=== PATIENT | female | born 1985 | race American Indian/Alaskan Native ===

== ENCOUNTER 2018-10-13 21:15 | Emergency (ER) | payer OTHER ==
[2018-10-13 21:29] VITALS: BP 119/68
--- NOTE | 2018-10-13 22:08 | XRay Report ---
RIGHT KNEE 2 VIEWS INDICATION / CLINICAL INFORMATION: Right knee pain and swelling COMPARISON: None available. FINDINGS: BONES / JOINT(S): No acute fracture or subluxation. No significant arthritis. SOFT TISSUES: No significant abnormality. ADDITIONAL FINDINGS: None. IMPRESSION: No acute abnormality. Signer Name: Asher Romero MD Signed: 10/13/2018 10:04 PM Workstation Name: [id number]
== END 2018-10-14 01:51 ==
LOC: ED 21:15
DX: M25.562 Pain in left knee (principal); Z53.21 Procedure and treatment not carried out due to patient leaving prior to being seen by health care provider